=== PATIENT | male | born 1965 | race Two or more races ===

== ENCOUNTER 2021-03-08 10:39 | Outpatient (CLI) | payer OTHER | END 2021-03-08 23:59 | disposition home or self-care (01) | LOC: LAB 10:39 | PROVIDERS: ATTEND Specialist | DX: Z01.812 Encounter for preprocedural laboratory examination (principal); Z20.822 Contact with and (suspected) exposure to COVID-19 | CPT/HCPCS: C9803; U0003 ==

== ENCOUNTER 2021-03-27 11:36 | Outpatient (CLI) | payer OTHER | END 2021-03-27 23:59 | disposition home or self-care (01) | LOC: LAB 11:36 | PROVIDERS: ATTEND Specialist | DX: Z01.812 Encounter for preprocedural laboratory examination (principal); Z20.822 Contact with and (suspected) exposure to COVID-19 | CPT/HCPCS: C9803; U0003 ==

== ENCOUNTER 2021-03-31 09:44 | Day surgery (SDC) | payer OTHER ==
[~2021-03-31] VITALS: Ht 175.3 cm; Wt 86.2 kg
[2021-03-31 06:56] VITALS: BP 132/92
--- NOTE | 2021-03-31 08:16 | NUR ---
MS RN OPENING NOTES Pt IS CURRENTLY IN DAY SURGERY AND NOT ON THE UNIT AT THIS TIME.
[~2021-03-31 09:44] MED LIST: ANESTHESIA TRAY IN PYXIS 1 EA TRAY MC ONE; BUPIVACAINE 0.5 % PF 150 MG/30 ML VIAL ONE; EPINEPHRINE (1:1000) 1 MG/ML AMPUL ONE; HYDROMORPHONE INJ 2 MG/ML DISP.SYRIN ONE; MIDAZOLAM HCL 2 MG/2ML VIAL ONE; ROCURONIUM BROMIDE 50 MG/5 ML ONE; hydrALAZINE HCL IV 20 MG VIAL ONE; methylPREDNISolone ACETATE 80 MG/ML VIAL ONE
[2021-03-31 10:00] VITALS: BP 136/87
[2021-03-31] MEDS ORDERED: hydrALAZINE HCL IV 20 MG VIAL IV ONE (10:00)
--- NOTE | 2021-03-31 10:00 | NUR ---
DAY SURGERY PATIENT ARRIVED S/P RIGHT SHOULDER ARTHROSCOPY AND ROTATION CUFF REPAIR WITH DR. BOWERS. PATIENT IS ALERT AND ORIENTED X4, ABLE TO MAKE NEEDS KNOWN. AMBULATORY. IMMOBILIZER ON RIGHT SHOULDER NOTED. NO PAIN AT THIS TIME. DR. BOWERS CLEARED PATIENT TO GO HOME IF READY. V/S FOLLOWS: BP-136/87, RR-18, T-97.5, HR-87, O2 SAT AT 95 % ROOM AIR. PER PATIENT HE IS READY TO GO HOME BECAUSE HIS RIDE IS WAITING FOR HIM DOWNSTAIRS.
--- NOTE | 2021-03-31 11:30 | NUR ---
DAY SURGERY DISCHARGE PATIENT IS ALERT AND ORIENTED X4, ABLE TO MAKE NEEDS KNOWN. DISCHARGE ORDER GIVEN BY DR. BOWERS. ALL DISCHARGE PAPERS SIGNED BY PATIENT. IV ACCESS ON LEFT HAND DISCONTINUED. WHEELED PATIENT DOWNSTAIRS AND WAS PICKED UP VIA [employer] CAR.
== END 2021-03-31 23:59 | disposition home or self-care (01) ==
LOC: DS 09:44 → UNDODISIN 12:00 → DS 23:59
PROVIDERS: ATTEND Specialist
DX: M75.41 Impingement syndrome of right shoulder (principal); M65.861 Other synovitis and tenosynovitis, right lower leg; I10 Essential (primary) hypertension; J44.9 Chronic obstructive pulmonary disease, unspecified; K21.9 Gastro-esophageal reflux disease without esophagitis; Z98.890 Other specified postprocedural states; Z79.899 Other long term (current) drug therapy
CPT/HCPCS: 29826; 29827; 87081; A4217; C1713; J0171; J0360; J0690; J1100; J1170; J1885; J2250; J2405; J2704; J3490 ×3; J7030; C9803; G0378; J1040; U0003